=== PATIENT | female | born 1970 | race Caucasian/White ===

== ENCOUNTER → 2023-12-24 14:06 | Outpatient (REF) | payer OTHER, SELFPAY | LOC: HWRAD 14:06 | PROVIDERS: ATTENDING PHYSICIAN Nurse Practitioner Family | DX: M54.50 Low back pain, unspecified (principal) | CPT/HCPCS: 72100 ==

== ENCOUNTER → 2024-02-17 16:21 | Outpatient (REF) | payer OTHER, SELFPAY | LOC: HWRAD 16:21 | PROVIDERS: ATTENDING PHYSICIAN Family Medicine | DX: M79.642 Pain in left hand (principal) | CPT/HCPCS: 73130 ==

== ENCOUNTER 2024-03-26 11:15 | Emergency (ER) | payer OTHER, SELFPAY ==
[2024-03-26 11:28] VITALS: BP 146/93
--- NOTE | 2024-03-26 13:23 | ED.GENMED ---
History of Present Illness
General
Chief Complaint: Back Pain
Source: patient
Exam Limitations: none
Time Seen by Provider: 03/26/24 13:22
Nursing documentation reviewed up to this point in time: agreed with
History of Present Illness
History of Present Illness:
54-year-old female with a past medical history of diabetes on insulin, hypertension, hypothyroid hyperlipidemia, asthma presenting to the emergency department today with concerns of bilateral upper extremity paresthesias and left-sided low back
pain. Patient she has been having low back pain for the past few weeks. Patient states that the pain starts in her left low back and radiates down the leg and down to the foot. Patient states that she feels this pain constantly is not
particularly worse with walking. Patient describes the pain as burning. Patient denies any history of trauma to the area. Patient was recently on a course of prednisone without any relief. Patient saw orthopedist who prescribed her high-dose
Motrin, patient did find some relief with this, however the pain quickly returned. Patient states that she is currently in physical therapy for this and has a MRI and orthopedic follow-up appointment scheduled for next week. Patient denies any
saddle paresthesias, any fevers or chills, any recent infusions or injections, any urinary or fecal incontinence. Patient states that this pain has been persisting and states that when she woke up this morning, she was going about her day and
started to develop bilateral upper extremity paresthesias. Patient denies neck pain. Patient denies upper back pain. Patient denies chest pain or shortness of breath, any difficulty speaking, any facial droop. Patient denies any difficulty
ambulating. Patient denies any recent vaccines.
Past History
Past History
ED Past Medical History: Asthma, HTN, IDDM, Other (Fatty liver disease being followed by gastroenterology), Other (Kidney stones) and Other (Diabetes and hypertension)
ED Past Surgical History: Other (Left ovarian cyst and tube removed, colostomy with reversal,)
Social History
Tobacco: Non-smoker
Alcohol: None
Personal:
Living: with family
Family History
Family History: CAD
Review of Systems
Review of Systems
All Other Systems: ROS reviewed and negative except as documented in HPI and ROS
Phy Exam
Physical Exam
Physical Exam:
General: Patient is well appearing and in no acute distress; non-toxic
Skin: Warm and dry, no rashes or lesions
Head: Normocephalic, atraumatic
Eyes: Sclera non-icteric. EOMs intact. PERRLA.
Neck: Patient seen spontaneously moving cervical spine, full range of motion cervical spine.
Cardiac: Regular rate and rhythm, no murmurs.
Peripheral Vascular: No lower extremity swelling or edema.
Pulm: Normal respiratory effort
Musculoskeletal: Tenderness to palpation of the left parathoracic muscles and left gluteal muscles. Positive left straight leg raise. No signs of trauma. No tenderness palpation of the cervical spine or paracervical muscles.
Neuro: CN II-XII intact, no focal neurologic deficits. 5 out of 5 strength in bilateral upper and lower extremities. Sensation intact to light touch bilaterally. Biceps, triceps, knee, ankle reflexes intact 2+.
Psychiatric: Appropriate mood and affect.
Course
Orders/Labs/Results
Orders:
Orders
03/26/24 13:50
Complete Blood Count/With Diff Urgent
Comprehensive Metabolic Panel Urgent
03/26/24 14:08
CR Cervical Spine 2 or 3 Vw Urgent
Comment:
Reason For Exam: upper extremity paresthesias
Abnormal Lab Results
03/26/24
13:50
RBC 4.17 L 10^6/uL
(4.20-5.40)
Hgb 11.8 L g/dL
(12.0-16.0)
Hct 35.0 L %
(37.0-47.0)
RDW 14.7 H %
(11.5-14.5)
Chloride 108 H mmol/L
(98-107)
Carbon Dioxide 21 L mmol/L
(22-30)
Glucose 109 H mg/dl
(70-99)
03/26/24 13:50
03/26/24 13:50
Vital Signs
Initial and Last Documented VS:
Initial Vital Signs
Temp Pulse Resp BP Pulse Ox
97.9 F 108 18 146/93 99
03/26/24 11:28 03/26/24 11:28 03/26/24 11:28 03/26/24 11:28 03/26/24 11:28
Last Documented Vital Signs
Temp Pulse Resp BP Pulse Ox
97.9 F 99 18 122/97 97
03/26/24 11:28 03/26/24 15:45 03/26/24 15:45 03/26/24 15:45 03/26/24 15:45
MDM/Problems Addressed
Differential Diagnosis Includes:
ddx include cervical radiculopathy, herniated nucleus pulposus, thoracic outlet syndrome, multiple sclerosis, guillain barre syndrome
MDM/Problems Addressed:
Bilateral upper extremity paresthesias:
54-year-old female with a past medical history of diabetes on insulin, hypertension, hypothyroid hyperlipidemia, asthma presenting to the emergency department today with concerns of bilateral upper extremity paresthesias and left-sided low back
pain. Patient she has been having low back pain for the past few weeks. Patient states that the pain starts in her left low back and radiates down the leg and down to the foot. Patient is being followed for Ortho for this however she presents for
the emergency department today because of bilateral upper extremity paresthesias that started this morning. Here in the emergency department her lab work demonstrates no electrolyte derangement, no leukocytosis indicating infection. Did obtain
plain films of the cervical spine which shows some multilevel degenerative changes, considering this finding, cervical radiculopathy certainly possibility.
While here in emergency department, patient's paresthesias significantly improved without intervention and she states that they have mainly gone away for the most part. Considering intact reflexes, ability to ambulate, no other focal neurologic
deficits on exam, no concern for Guillain-Ochoa� syndrome or other serious neurologic pathology at this time. Patient stable for discharge to follow-up with her orthopedist. Patient's low back pain persist despite physical therapy and Motrin and
Tylenol. Considering the neuropathic nature of her pain, we did discuss gabapentin. Prescribed this medication sent to her pharmacy. Patient stable for discharge.
Chronic conditions affecting care:
HTN, HLP, asthma, hypothyroidism, diabetes
Acute Exacerbation and/or Progression of Chronic Illness:
diabetes--opted not to start on steroids today
*Radiology
Radiology exam reviewed: preliminary read by ED provider (No acute fracture or dislocation, degenerative changes noted)
*Pulse Oximetry
Patient hypoxic: no
*Critical Care Note
Total Time (30-74mins, 75-104mins- exclusive of procedures): Not Applicable
Data Reviewed
Review of Other/Old Records Reveals: Records (Reviewed previous ER physician documentation from 08/10/2023, patient seen for urinary tract infection) and Discharge Summary (No recent discharge summaries to review)
Patient Management
Escalation/DeEscalation of care consider admission/obs:
Case reviewed with my attending Dr. Humphrey. Patient stable for discharge.
ED Attending Note
-
Portions of this chart may have been created with voice recognition software.� Occasional wrong word or��sound alike� substitutions may have occurred due to the inherent limitations of voice recognition software.
Discharge Plan
Departure
Patient Disposition: Home (Routine Discharge)
Date of Disposition: 03/26/24
Time of Disposition: 15:36
Patient with high blood pressure during this ER visit?: Yes
Condition: Good
Discharge Problem:
Back pain, Numbness and tingling
Instructions: Low Back Pain (DC), Radiculopathy (DC), BLOOD PRESSURE
Prescriptions:
New
gabapentin 100 mg capsule
100 mg PO Q8H Qty: 15 0RF
No Action
atorvastatin 20 MG tablet
20 mg PO QPM
cetirizine 10 MG tablet
10 mg PO DAILY
levothyroxine 50 MCG tablet
50 mcg PO DAILY
albuterol sulfate 1 PUFF HFA aerosol inhaler
2 puff inhalation R Q6HPRN PRN (Reason: SHORTNESS OF BREATH)
losartan [Cozaar] 100 MG tablet
100 mg PO DAILY
metformin 500 MG tablet extended release 24 hr
500 mg PO BID
repaglinide 1 MG tablet
1 mg PO DAILY
insulin glargine [Lantus Solostar U-100 Insulin] 300 UNITS/3 ML insulin pen
10 units SC HS
semaglutide [Ozempic] 1 MG/0.75 ML pen injector
4 mg SC SA
Estroven
1 tab PO HS
Claudette Apple Cider Vingear
1 tab PO DAILY
metronidazole 500 MG tablet
500 mg PO TID Qty: 15 0RF
levofloxacin 500 MG tablet
500 mg PO DAILY Qty: 5 0RF
levofloxacin 500 mg tablet
500 mg PO DAILY Qty: 7 0RF
phenazopyridine [Pyridium] 200 mg tablet
200 mg PO TID PRN (Reason: Pain) Qty: 6 0RF
Referrals:
Yeimy Staton DO [Family Provider] -
Activity Restrictions/Additional Instructions:
For the gabapentin, you can take 1 tablet every 8 hours as needed for pain. If you do not find relief with this dose, you can increase dose to 2 tablets every 8 hours.
Please return to the emergency department should you develop shortness of breath, chest pain, inability to ambulate, difficulty speaking or swallowing, muscle weakness, or any other signs or symptoms concerning to you.
Please follow-up with your orthopedist.
Interventions
Interventions:
*Risk Screen - Suicide Last Done: 03/26/24 13:26
*General Assessment Last Done: 03/26/24 11:28
*Neglect/Abuse Screening Last Done: 03/26/24 13:26
ED- Fall Risk Assessment Last Done: 03/26/24 15:48
*ED COVID-19 Vaccine History Last Done: 03/26/24 11:28
*Nursing Disposition Last Done: 03/26/24 15:48
ED-Musculoskeletal Assessment Last Done: 03/26/24 13:26
Discharge Date and Time
Discharge Date/Time: 03/26/24 15:49
Print Language: COMORAN
[2024-03-26 13:58] LABS: % Basophils 0.7 % (0-2); % Eosinophils 3.8 % (0-6); % Immature Granulocytes 0.2 % (0-0.5); % Lymphocytes 32.8 % (20.5-51.1); % Monocytes 8.6 % (1.7-9.3); % Neutrophils 53.9 % (42.2-75.2); Absolute Eosinophils 0.2 10^3/uL (0-0.7); Absolute Lymphocytes 1.9 10^3/uL (1.2-3.4); Absolute Monocytes 0.5 10^3/uL (0.1-0.6); Absolute Neutrophils 3.1 10^3/uL (1.4-6.5); Hemoglobin 11.8 g/dL (12.0-16.0); Mean Corp Hgb Conc. 33.7 g/dL (33.0-37.0); Mean Corpuscular Hgb 28.3 pg (27.0-31.0); Mean Corpuscular Volume 83.9 fL (81.0-99.0); Mean Platelet Volume 9.7 fL (7.4-10.4); Nucleated Red Blood Cells % 0 %; Platelet Count 325 10^3/uL (130-400); Red Blood Cell Count 4.17 10^6/uL (4.20-5.40); Red Cell Dist. Width 14.7 % (11.5-14.5); White Blood Cell Count 5.7 10^3/uL (4.8-10.8)
[2024-03-26 14:17] LABS: ALT (SGPT) 27 U/L (0-35); AST (SGOT) 29 U/L (14-36); Albumin 4.5 g/dl (3.5-5.0); Alkaline Phosphatase 70 U/L (38-126); Blood Urea Nitrogen 16 mg/dl (7-17); Calcium 9.8 mg/dl (8.4-10.2); Carbon Dioxide 21 mmol/L (22-30); Chloride 108 mmol/L (98-107); Glucose 109 mg/dl (70-99); Potassium 4.3 mmol/L (3.5-5.1); Sodium 140 mmol/L (135-145); Total Bilirubin 0.5 mg/dl (0.2-1.3); Total Protein 6.9 g/dl (6.3-8.2); eGFR > 60.00
[2024-03-26 15:45] VITALS: BP 122/97
== END 2024-03-26 15:49 | disposition home or self-care (01) ==
LOC: EMR 11:15
PROVIDERS: Physician Assistant; EMERGENCY PHYSICIAN Emergency Medicine; FAMILY PHYSICIAN Family Medicine
DX: M54.50 Low back pain, unspecified (principal); R20.2 Paresthesia of skin; R20.0 Anesthesia of skin; M79.605 Pain in left leg; M79.672 Pain in left foot; E11.9 Type 2 diabetes mellitus without complications; I10 Essential (primary) hypertension; E03.9 Hypothyroidism, unspecified; E78.5 Hyperlipidemia, unspecified; J45.909 Unspecified asthma, uncomplicated; K76.0 Fatty (change of) liver, not elsewhere classified; Z79.4 Long term (current) use of insulin; Z87.442 Personal history of urinary calculi; Z88.5 Allergy status to narcotic agent
CPT/HCPCS: 99283; 72040; 80053; 85025

== ENCOUNTER → 2024-04-07 07:16 | Outpatient (REF) | payer OTHER, SELFPAY | LOC: MRI 07:16 | PROVIDERS: ATTENDING PHYSICIAN Nurse Practitioner Family; FAMILY PHYSICIAN Family Medicine | DX: M54.16 Radiculopathy, lumbar region (principal) | CPT/HCPCS: 72148 ==

== ENCOUNTER 2024-06-14 18:03 | Emergency (ER) | payer OTHER, SELFPAY ==
[2024-06-14 18:08] VITALS: BP 156/104
[2024-06-14 18:26] LABS: % Basophils 0.5 % (0-2); % Eosinophils 1.3 % (0-6); % Immature Granulocytes 0.4 % (0-0.5); % Lymphocytes 10.1 % (20.5-51.1); % Monocytes 6.6 % (1.7-9.3); % Neutrophils 81.1 % (42.2-75.2); Absolute Basophils 0.1 10^3/uL (0-0.2); Absolute Eosinophils 0.2 10^3/uL (0-0.7); Absolute Immature Granulocytes 0.1 10^3/uL (0-0.05); Absolute Lymphocytes 1.3 10^3/uL (1.2-3.4); Absolute Monocytes 0.8 10^3/uL (0.1-0.6); Absolute Neutrophils 10.1 10^3/uL (1.4-6.5); Hematocrit 35.2 % (37.0-47.0); Hemoglobin 11.8 g/dL (12.0-16.0); Mean Corp Hgb Conc. 33.5 g/dL (33.0-37.0); Mean Corpuscular Volume 83.4 fL (81.0-99.0); Mean Platelet Volume 9.4 fL (7.4-10.4); Nucleated Red Blood Cells % 0 %; Platelet Count 374 10^3/uL (130-400); Red Blood Cell Count 4.22 10^6/uL (4.20-5.40); Red Cell Dist. Width 13.6 % (11.5-14.5); Urine Albumin Negative (Neg - Trace); Urine Bilirubin Negative (Negative); Urine Character Slightly Cloudy (Clear); Urine Color Yellow; Urine Glucose 1+ (Negative); Urine Ketone 2+ (Negative); Urine Leukocyte Negative (Negative); Urine Nitrite Negative (Negative); Urine Occult Blood Trace (Negative); Urine Specific Gravity 1.015 (<1.030); Urine Urobilinogen Negative (Neg - 1+); White Blood Cell Count 12.4 10^3/uL (4.8-10.8)
[2024-06-14 18:50] LABS: ALT (SGPT) 23 U/L (0-35); AST (SGOT) 26 U/L (14-36); Albumin 4.5 g/dl (3.5-5.0); Alkaline Phosphatase 110 U/L (38-126); Blood Urea Nitrogen 15 mg/dl (7-17); Calcium 10.4 mg/dl (8.4-10.2); Carbon Dioxide 22 mmol/L (22-30); Chloride 102 mmol/L (98-107); Glucose 239 mg/dl (70-99); Potassium 4.7 mmol/L (3.5-5.1); Sodium 137 mmol/L (135-145); Total Bilirubin 0.6 mg/dl (0.2-1.3); Total Protein 6.9 g/dl (6.3-8.2); eGFR > 60.00
[2024-06-14 18:58] LABS: Urine White Cell 0-2 /HPF (0-5)
[2024-06-14 20:20] VITALS: BP 148/91; BMI 30.7
--- NOTE | 2024-06-14 20:23 | ED.GENMED ---
History of Present Illness
General
Chief Complaint: Flank Pain
Time Seen by Provider: 06/14/24 20:03
History of Present Illness
History of Present Illness:
54-year-old female history of kidney stones, hypertension, hyperlipidemia, diverticulosis, diabetes presenting with left flank pain that radiates to her left abdomen. Patient states that she had an episode last week where spontaneously resolved.
Patient states that around 1 PM this afternoon she was lying on her couch when she had a wave of feeling 'very hot', nauseous with left flank pain and 'feeling queasy like a stomach bug'. Patient denies vomiting, diarrhea, fever, dysuria,
hematuria, or urinary urgency. Patient reports urinary frequency. Patient states that this feels similar to previous kidney stone.
Past History
Past History
ED Past Medical History: Asthma, HTN, IDDM, Other (Fatty liver disease being followed by gastroenterology), Other (Kidney stones) and Other (Diabetes and hypertension)
ED Past Surgical History: Other (Left ovarian cyst and tube removed, colostomy with reversal,)
Social History
Tobacco: Non-smoker
Alcohol: None
Personal:
Living: with family
Family History
Family History: CAD
Phy Exam
Physical Exam
Physical Exam:
General: Alert, no acute distress
Head: NCAT
Eyes: clear conjunctiva
Neck: supple
Cardiac: regular rate and rhythm, no murmur
Lungs: clear to auscultation bilaterally. No wheezes, rales, or rhonchi. Speaking full unlabored sentences. No respiratory distress.
Abdomen: soft, nondistended nontender. No rebound or guarding. Left CVA tenderness to palpation. No right CVA tenderness to palpation
MSK: no lower extremity edema bilaterally. No deformity
Skin: warm, dry
Neuro: Alert and oriented x3. no focal deficits
Course
Orders/Labs/Results
Orders:
Orders
06/14/24 18:20
Complete Blood Count/With Diff Urgent
Comprehensive Metabolic Panel Urgent
Urinalysis Reflex To Culture Urgent
Date Specimen was Collected: 06/14/24
Time Specimen was Collected: 18:13
Urine Microscopic Reflex Cult Urgent
06/14/24 20:22
CT Abd/pelvis Wo Iv Cont Urgent
Comment:
Reason For Exam: left cva tenderness
Ketorolac [Toradol] 15 mg IV NOW STA
Ondansetron Injectable [Zofran] 4 mg IV NOW STA
06/14/24 20:23
0.9% Sodium Chloride 1000 ml [Nss] 1,000 ml IV BOLUS
Abnormal Lab Results
06/14/24
18:20
WBC 12.4 H 10^3/uL
(4.8-10.8)
Hgb 11.8 L g/dL
(12.0-16.0)
Hct 35.2 L %
(37.0-47.0)
Abs Immat Gran (auto) 0.1 H 10^3/uL
(0-0.05)
Absolute Neuts (auto) 10.1 H 10^3/uL
(1.4-6.5)
Absolute Monos (auto) 0.8 H 10^3/uL
(0.1-0.6)
Neutrophils % 81.1 H %
(42.2-75.2)
Lymphocytes % 10.1 L %
(20.5-51.1)
Glucose 239 H mg/dl
(70-99)
Calcium 10.4 H mg/dl
(8.4-10.2)
Urine Ketones 2+ A
(Negative)
Ur Occult Blood Reflex Trace A
(Negative)
Urine RBC 7-10 A /HPF
(0-2)
Urine Glucose 1+ A
(Negative)
06/14/24 18:20
06/14/24 18:20
Vital Signs
Initial and Last Documented VS:
Initial Vital Signs
Temp Pulse Resp BP Pulse Ox
98.7 F 104 20 156/104 100
06/14/24 18:08 06/14/24 18:08 06/14/24 18:08 06/14/24 18:08 06/14/24 18:08
Last Documented Vital Signs
Temp Pulse Resp BP Pulse Ox
98.7 F 100 20 139/85 99
06/14/24 18:08 06/14/24 22:34 06/14/24 22:34 06/14/24 22:25 06/14/24 22:34
MDM/Problems Addressed
Differential Diagnosis Includes:
Kidney stone, hydronephrosis, UTI, pyelonephritis, diverticulitis
MDM/Problems Addressed:
54-year-old female presenting with left flank pain radiating around to her left abdomen associated nausea starting today.
Results reviewed. Creatinine 0.9. UA negative for UTI. CT abdomen pelvis shows 3-4 mm calculus in the distal left ureter, few centimeters proximal to the left ureterovesical junction with mild left hydroureteronephrosis and moderate left
perinephric stranding. Discussed results with patient at bedside. Will discharge with Flomax. Patient states that she has allergy to oxycodone, tolerates Vicodin. Will discharge with Vicodin for severe pain, urology follow-up
*Critical Care Note
Total Time (30-74mins, 75-104mins- exclusive of procedures): Not Applicable
ED Attending Note
-
Portions of this chart may have been created with voice recognition software.� Occasional wrong word or��sound alike� substitutions may have occurred due to the inherent limitations of voice recognition software.
Discharge Plan
Departure
Patient Disposition: Home (Routine Discharge)
Date of Disposition: 06/14/24
Time of Disposition: 22:13
Patient with high blood pressure during this ER visit?: Yes
Discharge Problem:
Ureterolithiasis
Instructions: Kidney Stones (DC), BLOOD PRESSURE
Prescriptions:
New
hydrocodone-acetaminophen 5-325 mg tablet
1 tab PO Q8H PRN (Reason: Pain) Qty: 10 0RF
tamsulosin [Flomax] 0.4 mg capsule
0.4 mg PO DAILY Qty: 7 0RF
No Action
atorvastatin 20 MG tablet
20 mg PO QPM
cetirizine 10 MG tablet
10 mg PO DAILY
levothyroxine 50 MCG tablet
50 mcg PO DAILY
albuterol sulfate 1 PUFF HFA aerosol inhaler
2 puff inhalation R Q6HPRN PRN (Reason: SHORTNESS OF BREATH)
losartan [Cozaar] 100 MG tablet
100 mg PO DAILY
metformin 500 MG tablet extended release 24 hr
500 mg PO BID
repaglinide 1 MG tablet
1 mg PO DAILY
insulin glargine [Lantus Solostar U-100 Insulin] 300 UNITS/3 ML insulin pen
10 units SC HS
semaglutide [Ozempic] 1 MG/0.75 ML pen injector
4 mg SC SA
Estroven
1 tab PO HS
Claudette Apple Cider Vingear
1 tab PO DAILY
metronidazole 500 MG tablet
500 mg PO TID Qty: 15 0RF
levofloxacin 500 MG tablet
500 mg PO DAILY Qty: 5 0RF
levofloxacin 500 mg tablet
500 mg PO DAILY Qty: 7 0RF
phenazopyridine [Pyridium] 200 mg tablet
200 mg PO TID PRN (Reason: Pain) Qty: 6 0RF
gabapentin 100 mg capsule
100 mg PO Q8H Qty: 15 0RF
Referrals:
Papo Pepe MD [Active] -
Yeimy Staton DO [Family Provider] -
Activity Restrictions/Additional Instructions:
Take Flomax daily
Take Tylenol 975 mg every 6 hours and/or ibuprofen 800 mg every 8 hours needed for pain
Take hydrocodone as needed for severe pain
Follow-up with urology 1 to 2 days
Strain urine
Return to the emergency department for persistent vomiting, fever or new/worsening symptoms
Interventions
Interventions:
*Risk Screen - Suicide Last Done: 06/14/24 18:08
*General Assessment Last Done: 06/14/24 18:08
*Neglect/Abuse Screening Last Done: 06/14/24 18:08
ED- Fall Risk Assessment Last Done: 06/14/24 20:20
*ED COVID-19 Vaccine History Last Done: 06/14/24 22:34
*Nursing Disposition Last Done: 06/14/24 22:34
AJ-Txbgjn-Unzizznkei Assessment Last Done: 06/14/24 20:20
ED-Female Genitourinary Assessment Last Done: 06/14/24 20:20
Discharge Date and Time
Discharge Date/Time: 06/14/24 22:35
Print Language: SLOVENIAN
[2024-06-14] MEDS: ZOFRAN 4 MG IV (20:37)
[2024-06-14] MEDS: TORADOL 15 MG IV (20:37)
[2024-06-14] MEDS: NSS 1000 IV (20:38)
[2024-06-14 22:25] VITALS: BP 139/85
== END 2024-06-14 22:35 | disposition home or self-care (01) ==
LOC: EMR 18:03
PROVIDERS: Emergency Medicine; EMERGENCY PHYSICIAN Emergency Medicine; FAMILY PHYSICIAN Family Medicine
DX: N13.2 Hydronephrosis with renal and ureteral calculous obstruction (principal); R11.0 Nausea; I10 Essential (primary) hypertension; E78.5 Hyperlipidemia, unspecified; K57.90 Diverticulosis of intestine, part unspecified, without perforation or abscess without bleeding; E11.9 Type 2 diabetes mellitus without complications; J45.909 Unspecified asthma, uncomplicated; K76.0 Fatty (change of) liver, not elsewhere classified; Z87.442 Personal history of urinary calculi; Z79.4 Long term (current) use of insulin; Z88.5 Allergy status to narcotic agent
CPT/HCPCS: 99284; 96374; 96375; 96361; 74176; 80053; 81003; 81015; 85025

== ENCOUNTER → 2024-07-06 10:59 | Outpatient (REF) | payer OTHER, SELFPAY | LOC: HWRAD 10:59 | PROVIDERS: ATTENDING PHYSICIAN Surgery; FAMILY PHYSICIAN Family Medicine | DX: N13.2 Hydronephrosis with renal and ureteral calculous obstruction (principal) | CPT/HCPCS: 74018 ==

== ENCOUNTER → 2024-07-14 11:25 | Outpatient (REF) | payer OTHER, SELFPAY | LOC: HWRAD 11:25 | PROVIDERS: ATTENDING PHYSICIAN Surgery; FAMILY PHYSICIAN Family Medicine | DX: N13.2 Hydronephrosis with renal and ureteral calculous obstruction (principal) | CPT/HCPCS: 74176 ==

== ENCOUNTER 2024-08-18 14:22 | Emergency (ER) | payer OTHER, SELFPAY ==
[2024-08-18 14:32] VITALS: BP 140/89
[2024-08-18 15:11] LABS: % Basophils 0.9 % (0-2); % Eosinophils 4.1 % (0-6); % Immature Granulocytes 0.3 % (0-0.5); % Lymphocytes 25.6 % (20.5-51.1); % Monocytes 8.4 % (1.7-9.3); % Neutrophils 60.7 % (42.2-75.2); Absolute Basophils 0.1 10^3/uL (0-0.2); Absolute Eosinophils 0.3 10^3/uL (0-0.7); Absolute Lymphocytes 1.8 10^3/uL (1.2-3.4); Absolute Monocytes 0.6 10^3/uL (0.1-0.6); Absolute Neutrophils 4.2 10^3/uL (1.4-6.5); Hematocrit 37.1 % (37.0-47.0); Hemoglobin 11.9 g/dL (12.0-16.0); Mean Corp Hgb Conc. 32.1 g/dL (33.0-37.0); Mean Corpuscular Hgb 27.5 pg (27.0-31.0); Mean Corpuscular Volume 85.7 fL (81.0-99.0); Nucleated Red Blood Cells % 0 %; Platelet Count 363 10^3/uL (130-400); Red Blood Cell Count 4.33 10^6/uL (4.20-5.40); Red Cell Dist. Width 14.2 % (11.5-14.5); White Blood Cell Count 6.9 10^3/uL (4.8-10.8)
[2024-08-18 15:20] LABS: ALT (SGPT) 25 U/L (0-35); AST (SGOT) 25 U/L (14-36); Albumin 4.3 g/dl (3.5-5.0); Alkaline Phosphatase 84 U/L (38-126); Blood Urea Nitrogen 17 mg/dl (7-17); Calcium 10.1 mg/dl (8.4-10.2); Carbon Dioxide 24 mmol/L (22-30); Chloride 104 mmol/L (98-107); Glucose 333 mg/dl (70-99); Potassium 4.4 mmol/L (3.5-5.1); Sodium 137 mmol/L (135-145); Total Bilirubin 0.3 mg/dl (0.2-1.3); Total Protein 6.8 g/dl (6.3-8.2); eGFR > 60.00
[2024-08-18 15:23] LABS: COVID-19 Antigen Negative (Negative)
[2024-08-18 15:29] LABS: Troponin I < 0.012 ng/ml
[2024-08-18 16:17] VITALS: BMI 32.7
--- NOTE | 2024-08-18 16:18 | ED.GENMED ---
History of Present Illness
General
Chief Complaint: Breathing Problem
Source: patient
Exam Limitations: none
Time Seen by Provider: 08/18/24 15:55
History of Present Illness
History of Present Illness:
54-year-old female with history of asthma and insulin-dependent type 2 diabetes presents with shortness of breath worsening over the past 4 days. She notes occasional chest pressure. Shortness of breath is worse with any minimal exertion. She has
been using her inhaler without relief. She denies leg swelling calf pain. She denies any recent travel. No hemoptysis. Spoke with her family doctor over the phone they sent her here for evaluation.
Past History
Past History
ED Past Medical History: Asthma, HTN, IDDM, Other (Fatty liver disease being followed by gastroenterology), Other (Kidney stones) and Other (Diabetes and hypertension)
ED Past Surgical History: Other (Left ovarian cyst and tube removed, colostomy with reversal,)
Social History
Tobacco: Non-smoker
Alcohol: None
Personal:
Living: with family
Family History
Family History: CAD
Phy Exam
Physical Exam
Physical Exam:
General: Well-appearing female increased work of breathing
HEENT: Normocephalic atraumatic neck is supple
Heart: Regular rate and rhythm no murmurs
Lungs: Clear slightly rhonchorous upon expiration
Extremities: No cyanosis or edema
Skin: Warm no rash
Scores
Heart Failure Risk
Heart Failure Risk Score: Not Applicable
Course
Orders/Labs/Results
Orders:
Orders
08/18/24 14:37
EKG [Electrocardiogram (*1)] Urgent
Reason for Study: Chest Pain
08/18/24 14:38
EKG- Treatment ONCE
08/18/24 14:46
COVID-19 Antigen Urgent
Source: Nasal Swab
Complete Blood Count/With Diff Urgent
Comprehensive Metabolic Panel Urgent
Troponin I Urgent
Influenza A+B Rapid Molecular Urgent
SILVIA Source: Nasal Swab
Specimen Description:
08/18/24 16:10
Ipratropium/Albuterol Sulfate [Duoneb] 3 ml INH R NOW ONE
CR Chest - 2 Views Urgent
Comment:
Reason For Exam: sob
08/18/24 16:21
D-Dimer Urgent
NT-proBNP Urgent
Troponin I Urgent
Abnormal Lab Results
08/18/24
14:46
Hgb 11.9 L g/dL
(12.0-16.0)
MCHC 32.1 L g/dL
(33.0-37.0)
Glucose 333 H mg/dl
(70-99)
08/18/24 14:46
08/18/24 14:46
Vital Signs
Initial and Last Documented VS:
Initial Vital Signs
Temp Pulse Resp BP Pulse Ox
97.7 F 107 18 140/89 98
08/18/24 14:32 08/18/24 14:32 08/18/24 14:32 08/18/24 14:32 08/18/24 14:32
Last Documented Vital Signs
Temp Pulse Resp BP Pulse Ox
97.7 F 93 16 141/97 98
08/18/24 14:32 08/18/24 19:00 08/18/24 19:00 08/18/24 19:00 08/18/24 19:00
MDM/Problems Addressed
Differential Diagnosis Includes:
Patient with shortness of breath. History of asthma. Not hypoxic but is slightly tachycardic. Will try DuoNeb. Initial troponin through triage undetectable. Repeat troponin pending D-dimer pending as well as BNP. Chest x-ray ordered.
Consider asthma exacerbation versus bronchitis versus pneumonia versus PE
Chronic conditions affecting care: DM
*Critical Care Note
Total Time (30-74mins, 75-104mins- exclusive of procedures): Not Applicable
Update Note
Update Note:
Chest x-ray clear. Troponin x 2 negative. D-dimer within normal limits. Patient has not been hypoxic nor tachycardic. She notes improvement after DuoNeb. I suspect asthma flare versus bronchitis. Discussed with patient potential for prednisone
however she is going to decline as her blood sugars have been high. She is trying to control her blood sugar for her upcoming surgery on her kidney. She declined a steroid at this time. Will send home with DuoNeb prescription as well as
doxycycline to cover.
ED Attending Note
-
Portions of this chart may have been created with voice recognition software.� Occasional wrong word or��sound alike� substitutions may have occurred due to the inherent limitations of voice recognition software.
Discharge Plan
Departure
Patient Disposition: Home (Routine Discharge)
Date of Disposition: 08/18/24
Time of Disposition: 20:00
Patient with high blood pressure during this ER visit?: No
Discharge Problem:
Acute bronchitis
Instructions: Acute Bronchitis, Adult (DC)
Prescriptions:
New
doxycycline hyclate 100 mg capsule
100 mg PO BID Qty: 14 0RF
ipratropium-albuterol 0.5 mg-3 mg(2.5 mg base)/3 mL solution for nebulization
3 ml inhalation Q6H PRN (Reason: shortness of breath) Qty: 90 0RF
No Action
atorvastatin 20 MG tablet
20 mg PO QPM
cetirizine 10 MG tablet
10 mg PO DAILY
levothyroxine 50 MCG tablet
50 mcg PO DAILY
albuterol sulfate 1 PUFF HFA aerosol inhaler
2 puff inhalation R Q6HPRN PRN (Reason: SHORTNESS OF BREATH)
losartan [Cozaar] 100 MG tablet
100 mg PO DAILY
metformin 500 MG tablet extended release 24 hr
500 mg PO BID
repaglinide 1 MG tablet
1 mg PO DAILY
insulin glargine [Lantus Solostar U-100 Insulin] 300 UNITS/3 ML insulin pen
10 units SC HS
semaglutide [Ozempic] 1 MG/0.75 ML pen injector
4 mg SC SA
Estroven
1 tab PO HS
Claudette Apple Cider Vingear
1 tab PO DAILY
metronidazole 500 MG tablet
500 mg PO TID Qty: 15 0RF
levofloxacin 500 MG tablet
500 mg PO DAILY Qty: 5 0RF
levofloxacin 500 mg tablet
500 mg PO DAILY Qty: 7 0RF
phenazopyridine [Pyridium] 200 mg tablet
200 mg PO TID PRN (Reason: Pain) Qty: 6 0RF
gabapentin 100 mg capsule
100 mg PO Q8H Qty: 15 0RF
hydrocodone-acetaminophen 5-325 mg tablet
1 tab PO Q8H PRN (Reason: Pain) Qty: 10 0RF
tamsulosin [Flomax] 0.4 mg capsule
0.4 mg PO DAILY Qty: 7 0RF
Referrals:
Yeimy Staton, [Family Provider] -
Activity Restrictions/Additional Instructions:
Take antibiotics as directed. Use nebulizer as needed every 6 hours. Return if worse otherwise follow-up with your doctor
Interventions
Interventions:
*Risk Screen - Suicide Last Done: 08/18/24 14:32
*General Assessment Last Done: 08/18/24 14:32
ED- Fall Risk Assessment Last Done: 08/18/24 16:18
*ED COVID-19 Vaccine History Last Done: 08/18/24 14:32
ED- Cardiac Assessment Last Done: 08/18/24 16:18
ED- Pulmonary Assessment Last Done: 08/18/24 16:18
Discharge Date and Time
Print Language: CITIZ[place]
[2024-08-18] MEDS: DUONEB 3 ML INH (16:21)
[2024-08-18 16:42] LABS: D-Dimer 0.34 ug/mlFEU (0.00-0.50)
[2024-08-18 16:54] LABS: NT-proBNP < 20.0 pg/ml; Troponin I < 0.012 ng/ml
[2024-08-18 17:02] VITALS: BP 123/78
[2024-08-18 18:00] VITALS: BP 132/88
[2024-08-18 19:00] VITALS: BP 141/97
[2024-08-18 20:19] VITALS: BP 138/93
== END 2024-08-18 20:35 | disposition home or self-care (01) ==
LOC: EMR 14:22
PROVIDERS: Emergency Medicine; Physician Assistant; EMERGENCY PHYSICIAN Emergency Medicine; FAMILY PHYSICIAN Family Medicine
DX: J20.9 Acute bronchitis, unspecified (principal); R06.02 Shortness of breath; E11.9 Type 2 diabetes mellitus without complications; I10 Essential (primary) hypertension; J45.909 Unspecified asthma, uncomplicated; Z82.49 Family history of ischemic heart disease and other diseases of the circulatory system; Z87.442 Personal history of urinary calculi
CPT/HCPCS: 99283; 94640; 71046; 80053; 83880; 84484; 85025; 85379; 87502; 87811; 93005

== ENCOUNTER → 2024-08-30 12:06 | Outpatient (REF) | payer OTHER, SELFPAY | LOC: PAVMRI 12:06 | PROVIDERS: ATTENDING PHYSICIAN Nurse Practitioner Obstetrics & Gynecology; FAMILY PHYSICIAN Family Medicine; REFERRING PHYSICIAN Orthopaedic Surgery Orthopaedic Surgery of the Spine | DX: M48.062 Spinal stenosis, lumbar region with neurogenic claudication (principal); M54.50 Low back pain, unspecified | CPT/HCPCS: 72158; A9575 ==

== ENCOUNTER → 2025-03-30 11:58 | Outpatient (REF) | payer OTHER, SELFPAY | LOC: DHSLP 11:58 | PROVIDERS: ATTENDING PHYSICIAN Internal Medicine Critical Care Medicine; FAMILY PHYSICIAN Family Medicine | DX: G47.30 Sleep apnea, unspecified (principal); R06.83 Snoring | CPT/HCPCS: 95800 ==

== ENCOUNTER 2025-05-10 06:32 | Day surgery (SDC) | payer OTHER, SELFPAY ==
[2025-05-10 07:54] LABS: Glucose - Point of Care 184 mg/dl (70-99)
== END 2025-05-10 09:35 | disposition home or self-care (01) ==
LOC: GI 06:32
PROVIDERS: ATTENDING PHYSICIAN Specialist
DX: R12 Heartburn (principal); R13.10 Dysphagia, unspecified; K22.2 Esophageal obstruction
CPT/HCPCS: 43249; 43239; 82962; 88305

== ENCOUNTER → 2025-05-19 16:50 | Outpatient (REF) | payer OTHER, SELFPAY | LOC: RAD 16:50 | PROVIDERS: ATTENDING PHYSICIAN Orthopaedic Surgery; FAMILY PHYSICIAN Family Medicine | DX: M25.559 Pain in unspecified hip (principal) | CPT/HCPCS: 72170 ==

== ENCOUNTER → 2025-06-07 13:12 | Outpatient (REF) | payer OTHER, SELFPAY | LOC: PAVMRI 13:12 | PROVIDERS: ATTENDING PHYSICIAN Orthopaedic Surgery; FAMILY PHYSICIAN Family Medicine; REFERRING PHYSICIAN Radiology Diagnostic Radiology | DX: M25.59 Pain in other specified joint (principal); M25.552 Pain in left hip; T85.192D Other mechanical complication of implanted electronic neurostimulator of spinal cord electrode (lead), subsequent encounter | CPT/HCPCS: 72070; 72100; 73721 ==

== ENCOUNTER 2025-06-15 06:13 | Day surgery (SDC) | payer OTHER, SELFPAY ==
[2025-06-15 07:30] VITALS: BMI 32.0
[2025-06-15 07:48] VITALS: BP 150/90; BMI 32.0
[2025-06-15 07:58] LABS: Glucose - Point of Care 205 mg/dl (70-99)
[2025-06-15 09:38] LABS: Glucose - Point of Care 158 mg/dl (70-99)
== END 2025-06-15 09:50 | disposition home or self-care (01) ==
LOC: SDS 06:13
PROVIDERS: ATTENDING PHYSICIAN Internal Medicine Gastroenterology
DX: K31.7 Polyp of stomach and duodenum (principal); K22.2 Esophageal obstruction; K31.89 Other diseases of stomach and duodenum; K86.89 Other specified diseases of pancreas
CPT/HCPCS: 43254; 43237; 82962; 88305